=== PATIENT | female | born 1975 | race Caucasian/White ===

== ENCOUNTER 2016-11-12 12:35 | Emergency (ER) | payer BC ==
[2016-11-12 12:45] VITALS: BMI 25.7
--- NOTE | 2016-11-12 13:23 | DR.GENAD ---
HPI - PCP Primary Care Physician: jose gayle - HPI Comment HPI Comment: PATIENT HAD ABRATION BEHIND HER RIGHT ANKLE 4 DAYS AGO. TODAY SHE HAVE LOW GRADE TEMPERATURE. HER HEART IS RACING AND SHE IS NOT FEELING GOOD. SAW PCP WHO STATED HER ON MED FOR CELLULITIS. PATIENT HAVE NO SIGNIFICANT MEDICAL ILLNESS. - Complaint/Symptoms Chief Complaint Doctors Comments: RIGHT ANKLE CELLULITIS TIMES 4 DAYS. FEELING BAD, HEART RACING. Chief Complaint:: patient stated she doesnt feel right and her heart feels like it is running away with her - Nurses notes reviewed Nurses Notes Review: Yes - Source History Provided: Patient - Mode of Arrival Mode of Arrival: Ambulatory - Timing Onset of Chief Complaint: 11/09/16 Came on: Suddenly - Duration Duration: Days - Severity Severity: Moderate PMH - PMH Past Medical History: No Past Surgical History: Yes Surgical History: Cholecystectomy Past Surgical History Comment: breast augmentation - Family History History of Family Medical Conditions: Yes Family Medical History: Coronary Artery Disease, Hypertension - Social History Does patient currently use any type of tobacco product: No Have you used tobacco products in the last 12 months: No Type of Tobacco Use: None Does any household member use tobacco: No Alcohol Use: None Do you use any recreational Drugs:: No Lives With: Family Lives Where: Home - infectious screening In the last 2 months have you had wt loss of >10#?: NO Have you had fever, night sweats or hemotysis?: No Have you traveled outside the country in the last 6 months?: No Isolation: Standard ROS - Review of Systems Constitutional: Weakness, Fatigue. negative: Chills, Fever Eyes: No Symptoms Reported ENTM: No Symptoms Reported Respiratoy: No Symptoms Reported. negative: Productive Cough, Short of Breath, Wheezing, Hemoptysis Cardiovascular: Palpitations Gastrointestinal/Abdominal: Nausea Genitourinary: No Symptoms Reported. negative: Dysuria, Frequency, Hematuria Neurological: Weakness. negative: Headache, Dizziness Musculoskeletal: Muscle Pain Integumentary: No Symptoms Reported Hematologic/Lymphatic: No Symptoms Reported Endocrine: No Symptoms Reported All Other Systems: Reviewed and Negative PE - Vital Signs Vitals: Temperature 97.7 F Pulse Rate [Right Brachial] 100 Pulse Rate 133 Respiratory Rate 16 Blood Pressure [Right Arm] 132/87 Blood Pressure [Left Arm] 133/84 Blood Pressure 159/102 O2 Sat by Pulse Oximetry 99 - General Limitations: No Limitations General Appearance: Alert - Head Head Exam: Normal Inspection - Eyes Eye exam: Normal Appearance - ENT ENT Exam: Normal External Ear Exam External Ear Exam: Normal External Inspection TM/Canal Exam: Bilateral Normal Nose Exam: Normal Nose Exam Mouth Exam: Normal Inspection Throat Exam: Normal Inspection - Neck Neck Exam: Normal Inspection - Chest Chest Inspection: Symmetric Chest Wall Rise - Respiratory Respiratory Exam: Normal Lung Sounds Bilat Respiratory Exam: Bilateral Clear to Auscultation - Cardiovascular Cardiovascular Exam: Normal Rhythm, Tachycardia, Normal Heart Sounds - Abdominal Exam Abdominal Exam: Normal Bowel Sounds, Soft. negative: Tenderness - Extremities Extremities Exam: Tenderness (RLE POSTERIOR ASPECT WITH INFECTED ABRASION.) - Back Back Exam: Normal Inspection - Neurologic Neurological Exam: Alert, Oriented X3 - Psychiatric Psychiatric Exam: Anxious - Skin Skin Exam: Erythema (POST RLE.) MDM - Differential Diagnosis Differential Diagnosis: CELLULITIS, PALPITATION Course - Treatment Treatment: SEE ORDERS. - Reevaluation 1st: Improved (DRESSING APPLIED TO INFECTED RIGHT ANKLE ABRASION IN ED.) - Education/Counseling Education/Counseling: Patient, Education Educated On: Treatment, Diagnosis, Needs for Follow Up ROR - Labs Reviewed Laboratory Results Reviewed?: Yes Result Diagrams: 11/12/16 13:35 11/12/16 13:35 Laboratory: 11/12/16 14:01 Ankle - Right Gram Stain - Final WBC 9.6 X10^3/uL (3.6-10.0) 11/12/16 13:35 RBC 4.94 X10^6/uL (3.5-5.4) 11/12/16 13:35 Hgb 14.7 g/dL (12.0-16.0) 11/12/16 13:35 Hct 41.3 % (36.0-47.0) 11/12/16 13:35 MCV 83.7 fL (80.0-100.0) 11/12/16 13:35 MCH 29.8 pg (27.0-34.0) 11/12/16 13:35 MCHC 35.6 g/dL (33.0-35.0) H 11/12/16 13:35 RDW 12.8 % (11.6-16.5) 11/12/16 13:35 Plt Count 256 X10^3/uL (150.0-450.0) 11/12/16 13:35 MPV 8.8 fL (7.4-11.0) 11/12/16 13:35 Neut % 73.1 % (42.0-75.0) 11/12/16 13:35 Lymph % 20.8 % (21.0-51.0) L 11/12/16 13:35 Lamar % 3.3 % (0.0-13.0) 11/12/16 13:35 Eos % 2.1 % (0.9-2.9) 11/12/16 13:35 Baso % 0.7 % (0.2-1.0) 11/12/16 13:35 Neut # 7.0 x10^3/uL (2.2-4.8) H 11/12/16 13:35 Lymph # 2.0 X10^3/uL (1.3-2.9) 11/12/16 13:35 Lamar # 0.3 x10^3/uL (0.3-0.8) 11/12/16 13:35 Eos # 0.2 x10^3/uL (0.0-0.2) 11/12/16 13:35 Baso # 0.1 X10^3/uL (0.0-0.1) 11/12/16 13:35 Absolute Nucleated RBC 0.0 /100WBC 11/12/16 13:35 Sodium 141 mmol/L (136-145) 11/12/16 13:35 Corrected Sodium 142 mmol/L (136-145) 11/12/16 13:35 Potassium 3.6 mmol/L (3.5-5.1) 11/12/16 13:35 Chloride 104 mmol/L (98-107) 11/12/16 13:35 Carbon Dioxide 25.9 mmol/L (21-32) 11/12/16 13:35 BUN 13 mg/dL (7-18) 11/12/16 13:35 Creatinine 0.91 mg/dL (0.55-1.02) 11/12/16 13:35 Est GFR (MDRD) Af Amer > 60 (>60) 11/12/16 13:35 Est GFR (MDRD) Non-Af > 60 (>60) 11/12/16 13:35 Glucose 123 mg/dL (65-99) H 11/12/16 13:35 Calcium 8.9 mg/dL (8.5-10.1) 11/12/16 13:35 Corrected Calcium TNP 11/12/16 13:35 Total Bilirubin 0.30 mg/dL (0.2-1.0) 11/12/16 13:35 AST 17 Units/L (15-37) 11/12/16 13:35 ALT 23 Units/L (12-78) 11/12/16 13:35 Alkaline Phosphatase 67 Units/L (46-116) 11/12/16 13:35 Creatine Kinase 165 Units/L (26-192) 11/12/16 13:35 CK-MB (CK-2) 2.2 ng/mL (0-4.0) 11/12/16 13:35 CK/CKMB % Calc 1.3 % (<4) 11/12/16 13:35 Troponin I < 0.02 ng/mL (0-1.5) 11/12/16 13:35 B-Natriuretic Peptide 11.9 pg/mL (0-79) 11/12/16 13:35 Total Protein 7.9 g/dL (6.4-8.2) 11/12/16 13:35 Albumin 3.7 g/dL (3.4-5.0) 11/12/16 13:35 Globulin 4.2 g/dL (2.5-4.5) 11/12/16 13:35 Albumin/Globulin Ratio 0.9 Ratio (1.1-2.1) L 11/12/16 13:35 TSH 3rd Generation 0.807 uIU/mL (0.358-3.74) 11/12/16 13:35 Specimen Type Clean catch urine 11/12/16 14:12 Urine Color Yellow (YELLOW) 11/12/16 14:12 Urine Appearance Slightly hazy (CLEAR) 11/12/16 14:12 Urine pH 5.0 (5.0 - 8.0) 11/12/16 14:12 Ur Specific [place] 1.020 (1.000-1.030) 11/12/16 14:12 Urine Protein 1+ (NEGATIVE) 11/12/16 14:12 Urine Glucose (UA) Negative (NEGATIVE) 11/12/16 14:12 Urine Ketones Negative (NEGATIVE) 11/12/16 14:12 Urine Occult Blood 2+ (NEGATIVE) 11/12/16 14:12 Urine Nitrite Negative (NEGATIVE) 11/12/16 14:12 Urine Bilirubin Negative (NEGATIVE) 11/12/16 14:12 Urine Urobilinogen Normal (NORMAL) 11/12/16 14:12 Ur Leukocyte Esterase 1+ (NEGATIVE) 11/12/16 14:12 Urine RBC 7-8 /HPF (NEGATIVE) 11/12/16 14:12 Urine WBC 2-3 /HPF (NEGATIVE) 11/12/16 14:12 Ur Squamous Epith Cells Many /HPF (NEGATIVE) 11/12/16 14:12 Urine Bacteria 1+ /HPF (NEGATIVE) 11/12/16 14:12 Ur Culture Indicated? No/not indicated 11/12/16 14:12 - XRAY XRAY Interpreted by: Radiologist XRAY Findings: REPORT DISCUSS WITH PATIENT. - EKG Rhythm: NSR (EKG NOTED) - Diagnosis Discharge Problem: Cellulitis of right lower extremity, Heart palpitations - Discharge Plan Disposition: 01 HOME, SELF-CARE Condition: Stable Prescriptions: Clindamycin HCl 300 mg PO Q6H #40 cap Hydroxyzine Pamoate [Vistaril] 25 - 50 mg PO TID PRN #50 cap PRN Reason: Ibuprofen [Motrin Tab 800 mg] 800 mg PO Q8H PRN #30 tab PRN Reason: Pain/Inflammation - Follow ups/Referrals Follow ups/Referrals: JOSE GAYLE [Primary Care Provider] - 3 days - Instructions Instructions: Palpitations, [id number], Cellulitis Additional Instructions: RETURN TO ED IF WORSE.
[2016-11-12 13:48] LABS: BASOPHILS # (AUTO) 0.1 X10^3/uL (0.0-0.1); BASOPHILS % (AUTO) 0.7 % (0.2-1.0); EOSINOPHILS # (AUTO) 0.2 x10^3/uL (0.0-0.2); EOSINOPHILS % (AUTO) 2.1 % (0.9-2.9); HEMATOCRIT 41.3 % (36.0-47.0); HEMOGLOBIN 14.7 g/dL (12.0-16.0); LYMPHOCYTES % (AUTO) 20.8 % (21.0-51.0); MEAN CORPUSCULAR HEMOGLOBIN 29.8 pg (27.0-34.0); MEAN CORPUSCULAR HGB CONC 35.6 g/dL (33.0-35.0); MEAN CORPUSCULAR VOLUME 83.7 fL (80.0-100.0); MEAN PLATELET VOLUME 8.8 fL (7.4-11.0); MONOCYTES # (AUTO) 0.3 x10^3/uL (0.3-0.8); MONOCYTES % (AUTO) 3.3 % (0.0-13.0); NEUTROPHILS % (AUTO) 73.1 % (42.0-75.0); PLATELET COUNT 256 X10^3/uL (150.0-450.0); RED BLOOD COUNT 4.94 X10^6/uL (3.5-5.4); RED CELL DISTRIBUTION WIDTH 12.8 % (11.6-16.5); WHITE BLOOD COUNT 9.6 X10^3/uL (3.6-10.0)
--- NOTE | 2016-11-12 13:55 | RAD ---
HISTORY: Chest pain, hypertension Study: Single-view chest Comparison: June 29, 2016 Findings: The trachea is midline. The cardiac silhouette is unremarkable. The lungs are clear without focal mass or consolidation. There is no effusion or pneumothorax. The bony thorax is grossly unremarkab le. IMPRESSION: No acute cardiopulmonary disease. Reported By:
[2016-11-12 14:02] LABS: BLOOD UREA NITROGEN 13 mg/dL (7-18); CALCIUM 8.9 mg/dL (8.5-10.1); CARBON DIOXIDE 25.9 mmol/L (21-32); CHLORIDE 104 mmol/L (98-107); COR NA(FOR HYPERGLY) 142 mmol/L (136-145); CREATININE 0.91 mg/dL (0.55-1.02); GLUCOSE 123 mg/dL (65-99); SODIUM 141 mmol/L (136-145); TROPONIN I < 0.02 ng/mL (0-1.5); eGFR BLACK RACES > 60 (>60); eGFR NON BLACK RACES > 60 (>60)
[2016-11-12 14:04] LABS: B-TYPE NATRIURETIC PEPTIDE 11.9 pg/mL (0-79)
[2016-11-12 14:17] LABS: ALANINE AMINOTRANSFERASE 23 Units/L (12-78); ALBUMIN 3.7 g/dL (3.4-5.0); ALKALINE PHOSPHATASE 67 Units/L (46-116); ASPARTATE AMINO TRANSFERASE 17 Units/L (15-37); CKMB % 1.3 % (<4); CREATINE KINASE 165 Units/L (26-192); CREATINE KINASE MB 2.2 ng/mL (0-4.0); TOTAL PROTEIN 7.9 g/dL (6.4-8.2); TSH (3RD GENERATION) 0.807 uIU/mL (0.358-3.74)
[2016-11-12 14:53] LABS: BILIRUBIN,URINE NEGATIVE (NEGATIVE); BLOOD/HEMOGLOBIN,URINE 2+ (NEGATIVE); GLUCOSE, URINE NEGATIVE (NEGATIVE); KETONES,URINE NEGATIVE (NEGATIVE); LEUKOCYTE ESTERASE ,URINE 1+ (NEGATIVE); NITRITES,URINE NEGATIVE (NEGATIVE); PROTEIN,URINE 1+ (NEGATIVE); UROBILINOGEN,URINE NORMAL (NORMAL)
[2016-11-12 14:55] LABS: APPEARANCE,URINE SLIGHTLY HAZY (CLEAR); BACTERIA,URINE 1+ /HPF (NEGATIVE); COLOR,URINE YELLOW (YELLOW); SQUAMOUS EPITHELIAL CELL,UR MANY /HPF (NEGATIVE)
[2016-11-12] MEDS ORDERED: TORADOL 60 MG VIAL IM ONE (14:56)
[2016-11-12 15:41] VITALS: BP 132/87
[2016-11-12] MEDS ORDERED: TORADOL 60 MG VIAL ONE (15:41)
== END 2016-11-12 15:50 | disposition home or self-care (01) ==
LOC: ER 12:51
DX: L03.115 Cellulitis of right lower limb (principal); R00.2 Palpitations; B95.61 Methicillin susceptible Staphylococcus aureus infection as the cause of diseases classified elsewhere
CPT/HCPCS: 36415; 71010; 80053; 81001; 82550; 82553; 83880; 84443; 84484; 85025; 87070; 87077; 87186; 87205; 93005; 93010; 96372; 99282; 99283; J1885

== ENCOUNTER → 2016-11-14 | Outpatient (CLI) | payer BC ==
[2016-11-12 15:41] VITALS: BP 132/87
== END ==
LOC: LAB 12:15
PROVIDERS: ATTEND Nurse Practitioner Family
DX: R94.6 Abnormal results of thyroid function studies (principal)
CPT/HCPCS: 36415; 84439; 84481

== ENCOUNTER → 2016-12-13 | Outpatient (CLI) | payer BC ==
[2016-12-13 13:38] LABS: BASOPHILS # (AUTO) 0.1 X10^3/uL (0.0-0.1); BASOPHILS % (AUTO) 0.6 % (0.2-1.0); EOSINOPHILS # (AUTO) 0.2 x10^3/uL (0.0-0.2); HEMATOCRIT 40.8 % (36.0-47.0); HEMOGLOBIN 14.3 g/dL (12.0-16.0); LYMPHOCYTES # (AUTO) 1.8 X10^3/uL (1.3-2.9); LYMPHOCYTES % (AUTO) 18.4 % (21.0-51.0); MEAN CORPUSCULAR HEMOGLOBIN 29.1 pg (27.0-34.0); MEAN CORPUSCULAR VOLUME 83.2 fL (80.0-100.0); MEAN PLATELET VOLUME 9.3 fL (7.4-11.0); MONOCYTES # (AUTO) 0.5 x10^3/uL (0.3-0.8); MONOCYTES % (AUTO) 5.4 % (0.0-13.0); NEUTROPHILS # (AUTO) 7.2 x10^3/uL (2.2-4.8); NEUTROPHILS % (AUTO) 73.6 % (42.0-75.0); PLATELET COUNT 227 X10^3/uL (150.0-450.0); RED CELL DISTRIBUTION WIDTH 12.6 % (11.6-16.5); WHITE BLOOD COUNT 9.8 X10^3/uL (3.6-10.0)
[2016-12-13 13:53] LABS: ALANINE AMINOTRANSFERASE 26 Units/L (12-78); ALBUMIN 3.5 g/dL (3.4-5.0); ALKALINE PHOSPHATASE 67 Units/L (46-116); ASPARTATE AMINO TRANSFERASE 21 Units/L (15-37); BLOOD UREA NITROGEN 14 mg/dL (7-18); CARBON DIOXIDE 25.9 mmol/L (21-32); CHLORIDE 107 mmol/L (98-107); CREATININE 0.92 mg/dL (0.55-1.02); GLUCOSE 102 mg/dL (65-99); SODIUM 143 mmol/L (136-145); TOTAL PROTEIN 7.5 g/dL (6.4-8.2); eGFR BLACK RACES > 60 (>60); eGFR NON BLACK RACES > 60 (>60)
[2016-12-13 14:25] LABS: IRON 58 ug/dL (50-175); TOTAL IRON BINDING CAPACITY 357 ug/dL (250-450)
== END ==
LOC: LAB 13:07
PROVIDERS: ATTEND Internal Medicine Gastroenterology
DX: D64.89 Other specified anemias (principal); K92.1 Melena
CPT/HCPCS: 36415; 80053; 82607; 82728; 82746; 83540; 83550; 85025; 86140

== ENCOUNTER 2016-12-20 10:44 | Day surgery (SDC) | payer BC ==
[2016-12-20] MEDS ORDERED: D5 LR 1000 ML 1,000 ML IV ONE (11:13)
[2016-12-20] MEDS ORDERED: DIPRIVAN VIAL 20 ML ONE (11:29)
[2016-12-20] MEDS ORDERED: DIPRIVAN VIAL 10 ML ONE (11:41)
[2016-12-20 16:36] VITALS: BP 119/70
== END 2016-12-20 12:20 | disposition home or self-care (01) ==
LOC: SURG1 10:44
PROVIDERS: ATTEND Internal Medicine Gastroenterology
PROC: 0DJD8ZZ Inspection of Lower Intestinal Tract, Via Natural or Artificial Opening Endoscopic (ICD-10-PCS; principal; 2016-12-20 13:45)
DX: K92.1 Melena (principal); R19.4 Change in bowel habit; R10.84 Generalized abdominal pain; K52.89 Other specified noninfective gastroenteritis and colitis; K64.0 First degree hemorrhoids
CPT/HCPCS: A4217; J3490; J7120

== ENCOUNTER → 2017-05-28 | Outpatient (CLI) | payer BC ==
--- NOTE | 2017-05-29 16:14 | RAD ---
HISTORY: Back Pain Study: 4 views of the lumbar spine Comparison: None. Findings: Grade 2 anterolisthesis of L5 on S1 likely secondary to pars defects bilaterally at the level. Sever e disc height loss at L5-S1. Vertebral body heights are normal. Sacroiliac joints are unremarkable. No evidence for acute fracture can be identified. IMPRESSION: 1. Grade 2 anterolisthesis of L5 on S1 likely secondary to bilateral L5 pars defects. Reported By:
== END | disposition home or self-care (01) ==
LOC: RAD 15:26
PROVIDERS: ATTEND Nurse Practitioner Family
DX: M54.5 Low back pain (principal); M43.16 Spondylolisthesis, lumbar region
CPT/HCPCS: 72110

== ENCOUNTER 2017-06-06 07:35 | Day surgery (SDC) | payer BC ==
[2017-06-06] MEDS ORDERED: D5 LR 1000 ML 1,000 ML IV ONE (07:40)
[2017-06-06] MEDS ORDERED: DIPRIVAN VIAL 20 ML ONE (09:17)
[2017-06-06] MEDS ORDERED: DIPRIVAN VIAL 10 ML ONE (09:33)
[2017-06-06 10:11] VITALS: BP 138/86
== END 2017-06-06 10:00 | disposition home or self-care (01) ==
LOC: SURG1 07:35
PROVIDERS: ATTEND Internal Medicine Gastroenterology
PROC: 0DB88ZX Excision of Small Intestine, Via Natural or Artificial Opening Endoscopic, Diagnostic (ICD-10-PCS; principal; 2017-06-06 07:00)
PROC: 0DJ08ZZ Inspection of Upper Intestinal Tract, Via Natural or Artificial Opening Endoscopic (ICD-10-PCS; principal; 2017-06-06 07:00)
PROC: 0D757ZZ Dilation of Esophagus, Via Natural or Artificial Opening (ICD-10-PCS; principal; 2017-06-06 07:00)
PROC: 0DB68ZX Excision of Stomach, Via Natural or Artificial Opening Endoscopic, Diagnostic (ICD-10-PCS; principal; 2017-06-06 07:00)
DX: R10.13 Epigastric pain (principal); R13.19 Other dysphagia; K21.9 Gastro-esophageal reflux disease without esophagitis; K29.60 Other gastritis without bleeding; K20.8 Other esophagitis
CPT/HCPCS: J3490; J7120

== ENCOUNTER → 2017-09-05 | Outpatient (CLI) | payer BC ==
--- NOTE | 2017-09-05 14:19 | MRI ---
MRI OF THE LUMBAR SPINE WITHOUT IV CONTRAST CLINICAL INDICATION: Low back pain TECHNIQUE: Pre-contrast sagittal T1-, T2-, and T2-w fat-saturated images, and axial T1- and T2-w imag es of the lumbar spine. COMPARISON: None. FINDINGS: For purposes of this dictation, it is assumed that there are 5 [id number], lumbar-type vertebrae , and the most caudal fully segmented lumbar vertebra is labeled L5. There is a grade 2 anterolisthesis of L5 on S1 secondary to bilateral L5 pars defects. Vertebral bodi es are normal in height. There is a normal marrow signal pattern. Significant disc height loss at the L5-S1 level with endplate edema. The conus medullaris terminates at a normal level and the nerve clare ts of the cauda equina appear normal. The included paraspinal soft tissues and retroperitoneal struct ures are grossly normal. Evaluation of the individual levels demonstrates: L1-2: Normal L2-3: Normal L3-4: Normal L4-5: Mild disc bulge without central stenosis. L5-S1: Grade 1 anterolisthesis and endplate changes resulting in mild central stenosis but severe qi ateral neural foraminal stenosis. IMPRESSION: 1. Bilateral L5 pars defects resulting in grade 2 anterolisthesis of L5 on S1 and severe bilateral ne ural foraminal stenosis. Reported By:
== END | disposition home or self-care (01) ==
LOC: RAD 13:07
PROVIDERS: ATTEND Internal Medicine
DX: M51.26 Other intervertebral disc displacement, lumbar region (principal); M48.07 Spinal stenosis, lumbosacral region
CPT/HCPCS: 72148

== ENCOUNTER → 2017-09-27 | Outpatient (CLI) | payer BC ==
[2017-09-27 13:27] LABS: BASOPHILS # (AUTO) 0.1 X10^3/uL (0.0-0.1); BASOPHILS % (AUTO) 0.7 % (0.2-1.0); EOSINOPHILS # (AUTO) 0.1 x10^3/uL (0.0-0.2); EOSINOPHILS % (AUTO) 1.8 % (0.9-2.9); HEMATOCRIT 39.2 % (36.0-47.0); LYMPHOCYTES # (AUTO) 2.1 X10^3/uL (1.3-2.9); LYMPHOCYTES % (AUTO) 26.5 % (21.0-51.0); MEAN CORPUSCULAR HEMOGLOBIN 29.3 pg (27.0-34.0); MEAN CORPUSCULAR HGB CONC 35.7 g/dL (33.0-35.0); MEAN PLATELET VOLUME 9.4 fL (7.4-11.0); MONOCYTES # (AUTO) 0.4 x10^3/uL (0.3-0.8); MONOCYTES % (AUTO) 4.9 % (0.0-13.0); NEUTROPHILS # (AUTO) 5.2 x10^3/uL (2.2-4.8); NEUTROPHILS % (AUTO) 66.1 % (42.0-75.0); PLATELET COUNT 225 X10^3/uL (150.0-450.0); RED BLOOD COUNT 4.78 X10^6/uL (3.5-5.4); RED CELL DISTRIBUTION WIDTH 12.3 % (11.6-16.5); WHITE BLOOD COUNT 7.9 X10^3/uL (3.6-10.0)
== END ==
LOC: LAB 11:48
PROVIDERS: ATTEND Internal Medicine Gastroenterology
DX: K62.5 Hemorrhage of anus and rectum (principal)
CPT/HCPCS: 36415; 85025

== ENCOUNTER → 2017-11-07 | Outpatient (CLI) | payer BC ==
--- NOTE | 2017-11-07 17:16 | MG ---
HISTORY: SCREENING Comparison: None FINDINGS: Bilateral CC and MLO projections of the right and left breast were obtained utilizing full field and pushback technique with bilateral subpectoral saline implants appearing grossly intact. Scattered fi broglandular tissue is seen to be present. No suspicious architectural distortion, mass or clustered microcalcifications can be observed to suggest malignancy. No skin thickening or nipple retraction is appreciated. No pathological lymphadenopathy can be identified. Benign-appearing calcifications are noted within the right and left breast. IMPRESSION: NO RADIOGRAPHIC EVIDENCE OF MALIGNANCY. ACR CATEGORY 2 - benign findings. FOLLOW-UP EXAM 1 YEAR. Diagnostic CAD was utilized and reviewed. * 0 (ZERO) - ASSESSMENT INCOMPLETE; ADDITIONAL IMAGING IS NEEDED. * 1/1 (ONE) - NEGATIVE. * 2/II (TWO) - BENIGN FINDINGS. * 3/III (THREE) - PROBABLY BENIGN FINDING; SHORT INTERVAL FOLLOW-UP SUGGESTED. * 4/IV (FOUR) - SUSPICIOUS ABNORMALITY; BIOPSY SHOULD BE CONSIDERED. * 5/V - HIGHLY SUSPICIOUS OF MALIGNANCY; BIOPSY SHOULD BE PERFORMED. A NEGATIVE X-RAY REPORT SHOULD NOT DELAY BIOPSY IF A DOMINANT OR CLINICALLY SUSPICIOUS MASS IS PRESENT; 4 TO 8 PERCENT OF CANCERS ARE NOT IDENTIFIED BY X-RAY. A NEGA TIVE REPORT MAY REINFORCE THE CLINICAL IMPRESSION. ADENOSIS AND DENSE BREASTS MAY OBSCURE AN UNDERLY ING NEOPLASM. Reported By:
== END ==
LOC: RAD 10:16
PROVIDERS: ATTEND Specialist
DX: Z12.31 Encounter for screening mammogram for malignant neoplasm of breast (principal)
CPT/HCPCS: 77067

== ENCOUNTER 2020-01-28 16:37 | Observation (INO) ==
[2020-01-28] MEDS ORDERED: PEPCID 20 MG IV PREMIX* 20 MG/50 ML BAG IV ONE ×2 (17:07→17:13)
--- NOTE | 2020-01-28 17:08 | DR.CP ---
HPI Time Seen Time Seen by Provider: 01/28/20 16:56 PCP Primary Care Physician: NADIA COOK HPI Comment HPI Comment: PATIENT IS 44YR OLD FEMALE IN ER WITH RIGHT UPPER CHEST PAIN RADIATING TO LEFT SHOULDER, NECK AND JAW. PAIN WORSE TODAY. PAIN ASSOCIATED WITH WEAKNESS, FATIGUE AND NAUSEA. IN ER BP ELEVATED AND HEART RATE IS SLIGHTLY RAPID. NO FEVER, COUGH OR CONGESTION. PAIN CURRENTLY 4/10 LEFT UPPER CHEST BUT WAS UP TO 8/10. PRESSURE ACHING PAIN. Complaint Chief Complaint Doctor Comments: CHEST PAINTIMES 4 DAYS. Chief Complaint:: PT. C/O INTERMITTENT LEFT SHOULDER AND CHEST PAIN. PAIN RADIATES TO NECK AND LEFT JAW. PT. ALSO C/O INCREASED FATIGUE AND NAUSEA. COVID-19 Coronavirus risk:travel/contact w/high risk person: No Has patient experienced Coronavirus symptoms: No Reviewed Nurses Notes Review: Yes Source History Provided: Patient Mode of Arrival Mode of Arrival: Ambulatory Timing Onset of Chief Complaint: 01/24/20 Came on: Suddenly Duration Duration: Intermittent Duration: Days Location Location of Chest Pain: Left and Chest Chest Pain Radiation Location: Left Jaw, Left Shoulder and Neck Context Onset: At rest Cardiac Risk Factors: None History of: None Prehospital Care: None Quality Quality: Pressure like and Heavy Severity Severity: Moderate Modifying Factors Worsens: Exertion Impoves: Rest Associated Signs and Symptoms Associated Signs and Symptoms: Palpitations and Nausea/Vomiting PMH PMH Past Medical History: Yes Past Medical History: Arthritis Past Surgical History: Yes Surgical History: and Cholecystectomy Family History History of Family Medical Conditions: No Family Medical History: Diabetes Mellitus Social History Does patient currently use any type of tobacco product: No Have you used tobacco products in the last 12 months: No Type of Tobacco Use: None Does any household member use tobacco: No Alcohol Use: None Do you use any recreational Drugs:: No Lives With: Family Lives Where: Home Travel Risk Coronavirus risk:travel/contact w/high risk person: No Has patient experienced Coronavirus symptoms: No Infectious screening In the last 2 months have you had wt loss of >10#?: NO Have you had fever, night sweats or hemotysis?: No Have you traveled outside the country in the last 6 months?: No Isolation: Standard ROS Review of Systems Constitutional: See HPI, Diaphoresis, Weakness and Fatigue Eyes: No Symptoms Reported and See HPI; negative Blurred Vision and Diplopia ENTM: No Symptoms Reported and See HPI; negative Ear Pain, Nose Discharge, Nose Congestion and Throat Pain Respiratoy: No Symptoms Reported and See HPI; negative Moist Cough Cardiovascular: No Symptoms Reported, See HPI, Chest Pain and Palpitations; negative Edema Gastrointestinal/Abdominal: No Symptoms Reported, See HPI and Nausea; negative Abdominal Pain, Diarrhea and Vomiting Genitourinary: No Symptoms Reported and See HPI; negative Dysuria, Frequency and Hematuria Neurological: See HPI and Weakness; negative Headache and Dizziness Musculoskeletal: See HPI and Muscle Pain; negative Back Pain Integumentary: No Symptoms Reported and See HPI; negative Change in Color, Rash and Juandice Hematologic/Lymphatic: No Symptoms Reported and See HPI; negative Easy Bruising and Swollen Glands Endocrine: No Symptoms Reported and See HPI; negative Increased Thirst and Increased Urine Psychiatric: No Symptoms Reported and See HPI All Other Systems: Reviewed and Negative PE Vitals Vitals: Temperature 97.8 F Pulse Rate 97 Respiratory Rate 28 Blood Pressure [Right Arm] 129/76 Blood Pressure 137/74 O2 Sat by Pulse Oximetry 100 General Limitations: No Limitations General Appearance: Alert and In No Apparent Distress Head Head Exam: Normal Inspection, Atraumatic and Normocephalic Eyes Eye exam: Normal Appearance and PERRL; negative Scleral Icterus and Conjunctival Injection ENT ENT Exam: Normal Exam, Normal Oropharynx, Normal External Ear Exam and TM's Normal Bilaterally Chest Chest Inspection: Normal Inspection and Symmetric Chest Wall Rise; negative Tenderness Respiratory Respiratory Exam: Normal Lung Sounds Bilat; negative Accessory Muscle Use, Chest Wall Tenderness and Respiratory Distress Respiratory Exam: Bilateral: Clear to Auscultation Cardiovascular Cardiovascular Exam: Tachycardia; negative Systolic Murmur and Diastolic Murmur Pulse: Normal Edema: Normal Abdominal Exam Abdominal Exam: Normal Bowel Sounds and Soft; negative Tenderness Extremities Extremities Exam: Normal Inspection, Full ROM and Normal Capillary Refill; negative Tenderness, Edema and Calf Tenderness Back Back Exam: Normal Inspection; negative Tenderness, (R) CVA Tenderness, (L) CVA Tenderness, Paraspinal Tenderness and Vertebral Tenderness Neurologic Neurological Exam: Alert, Oriented X3 and CN II-XII Intact; negative Motor Sensory Deficit Psychiatric Psychiatric Exam: Normal Affect and Normal Mood Skin Skin Exam: Warm, Dry, Intact and Normal Color MDM Differential Diagnosis Differential Diagnosis: Angina, Chest Wall Pain, Cholelithasis, CHF, Costochondritis, Myocardial Infarction, Pericarditis, Pleuritis, Pancreatitis, Pneumonia, Pneumothorax and Pulmonary Embolus COURSE Treatment Treatment: SEE ORDERS. POTASSIUM 20MEQ PO IN ER, ASA CHEWABLE 324MG PO, NTG S/L X 1 AND PEPCID 20 MG IVPB IN ER. RESIDUAL ACHING IN LEFT ARM. Reevaluation 1st: Improved (CHEST PAIN RESOLVED WITH ASA AND NTG S/L. ) Consultation Consultation Comments: DISCUSSED PATIENT WITH DR. WARE. HE WILL ADMIT PATIENT. Education/Counseling Education/Counseling: Patient Educated On: Diagnosis and Needs for Follow Up ROR Labs Reviewed Laboratory Results Reviewed?: Yes Result Diagrams: 01/29/20 04:57 01/29/20 04:57 Laboratory: WBC 7.8 X10^3/uL (3.6-10.0) 01/28/20 16:55 RBC 4.85 X10^6/uL (3.5-5.4) 01/28/20 16:55 Hgb 14.3 g/dL (12.0-16.0) 01/28/20 16:55 Hct 41.3 % (36.0-47.0) 01/28/20 16:55 MCV 85.2 fL (80.0-100.0) 01/28/20 16:55 MCH 29.5 pg (27.0-34.0) 01/28/20 16:55 MCHC 34.7 g/dL (33.0-35.0) 01/28/20 16:55 RDW 13.1 % (11.6-16.5) 01/28/20 16:55 Plt Count 246 X10^3/uL (150.0-450.0) 01/28/20 16:55 MPV 8.4 fL (7.4-11.0) 01/28/20 16:55 Neut % (Auto) 69.8 % (42.0-75.0) 01/28/20 16:55 Lymph % (Auto) 23.7 % (21.0-51.0) 01/28/20 16:55 Holt % (Auto) 4.1 % (0.0-13.0) 01/28/20 16:55 Eos % (Auto) 1.8 % (0.9-2.9) 01/28/20 16:55 Baso % (Auto) 0.6 % (0.2-1.0) 01/28/20 16:55 Neut # (Auto) 5.5 x10^3/uL (2.2-4.8) H 01/28/20 16:55 Lymph # (Auto) 1.9 X10^3/uL (1.3-2.9) 01/28/20 16:55 Holt # (Auto) 0.3 x10^3/uL (0.3-0.8) 01/28/20 16:55 Eos # (Auto) 0.1 x10^3/uL (0.0-0.2) 01/28/20 16:55 Baso # (Auto) 0.0 X10^3/uL (0.0-0.1) 01/28/20 16:55 Absolute Nucleated RBC 0.0 /100WBC 01/28/20 16:55 Sodium 136 mmol/L (136-145) 01/28/20 16:55 Corrected Sodium TNP 01/28/20 16:55 Potassium 3.1 mmol/L (3.5-5.1) L 01/28/20 16:55 Chloride 99 mmol/L (98-107) 01/28/20 16:55 Carbon Dioxide 27.1 mmol/L (21-32) 01/28/20 16:55 BUN 13 mg/dL (7-18) 01/28/20 16:55 Creatinine 1.00 mg/dL (0.55-1.02) 01/28/20 16:55 Est GFR (MDRD) Af Amer > 60 (>60) 01/28/20 16:55 Est GFR (MDRD) Non-Af > 60 (>60) 01/28/20 16:55 Glucose 96 mg/dL (65-99) 01/28/20 16:55 Calcium 9.4 mg/dL (8.5-10.1) 01/28/20 16:55 Corrected Calcium TNP 01/28/20 16:55 Magnesium 1.7 mg/dL (1.7-2.9) 01/28/20 16:55 Total Bilirubin 0.30 mg/dL (0.2-1.0) 01/28/20 16:55 AST 21 Units/L (15-37) 01/28/20 16:55 ALT 24 Units/L (12-78) 01/28/20 16:55 Alkaline Phosphatase 75 Units/L (46-116) 01/28/20 16:55 Creatine Kinase 295 Units/L (26-192) H 01/28/20 16:55 CK-MB (CK-2) 2.4 ng/mL (0-4.0) 01/28/20 16:55 CK/CKMB % Calc 0.8 % (<4) 01/28/20 16:55 Troponin I < 0.02 ng/mL (0-1.5) 01/28/20 16:55 Total Protein 8.1 g/dL (6.4-8.2) 01/28/20 16:55 Albumin 4.0 g/dL (3.4-5.0) 01/28/20 16:55 Globulin 4.1 g/dL (2.5-4.5) 01/28/20 16:55 Albumin/Globulin Ratio 1.0 Ratio (1.1-2.1) L 01/28/20 16:55 XRAY XRAY Interpreted by: Radiologist (REPORT NOTED AND DISCSSED WITH PATIENT. ) and Self (NO ACUTE INFILTRATE IN CHEST XRAY.) EKG Rate: 94 [place]els: Normal Rhythm: NSR Block: None Hypertrophy: None ST: Nonsp Opioid Opioid Risk Tool Age (Reid box if 16-45): Yes History of Preadolescent Sexual Abuse: No Total: 1 Total Score Risk Category: Low Risk Copyright: [facility] predicting aberrant behaviors Diagnosis Discharge Problem: Palpitation Chest pain Qualifiers: Chest pain type: precordial pain Qualified Code(s): R07.2 - Precordial pain Instructions Instructions: Exercise Stress Test, Hzlr-[id number]-Dsyb Heartburn, Yvzh-qs-Vhvu Weakness, Lzfq-wx-Ivoa Hypertension, Bfpu-fu-Rsoj Form - Blood Pressure Record Sheet Gastroesophageal Reflux Disease, Adult, Ixpu-pj-Erma Echocardiogram Chest Wall Pain Forms: Excuse From Work or School Precautions for COVID19 Patient Portal Social Distancing
[2020-01-28 17:09] LABS: BASOPHILS % (AUTO) 0.6 % (0.2-1.0); EOSINOPHILS # (AUTO) 0.1 x10^3/uL (0.0-0.2); EOSINOPHILS % (AUTO) 1.8 % (0.9-2.9); HEMATOCRIT 41.3 % (36.0-47.0); HEMOGLOBIN 14.3 g/dL (12.0-16.0); LYMPHOCYTES # (AUTO) 1.9 X10^3/uL (1.3-2.9); LYMPHOCYTES % (AUTO) 23.7 % (21.0-51.0); MEAN CORPUSCULAR HEMOGLOBIN 29.5 pg (27.0-34.0); MEAN CORPUSCULAR HGB CONC 34.7 g/dL (33.0-35.0); MEAN CORPUSCULAR VOLUME 85.2 fL (80.0-100.0); MEAN PLATELET VOLUME 8.4 fL (7.4-11.0); MONOCYTES # (AUTO) 0.3 x10^3/uL (0.3-0.8); MONOCYTES % (AUTO) 4.1 % (0.0-13.0); NEUTROPHILS # (AUTO) 5.5 x10^3/uL (2.2-4.8); NEUTROPHILS % (AUTO) 69.8 % (42.0-75.0); PLATELET COUNT 246 X10^3/uL (150.0-450.0); RED BLOOD COUNT 4.85 X10^6/uL (3.5-5.4); RED CELL DISTRIBUTION WIDTH 13.1 % (11.6-16.5); WHITE BLOOD COUNT 7.8 X10^3/uL (3.6-10.0)
[2020-01-28] MEDS ORDERED: ASPIRIN 81 MG CHEWTAB ONE (17:13)
[2020-01-28] MEDS ORDERED: NITROSTAT ONE (17:23)
[2020-01-28] MEDS: ASPIRIN 81 MG CHEWTAB PO ONE ×2 (17:25→17:28)
[2020-01-28] MEDS ORDERED: NITROSTAT SL PRN (17:27)
[2020-01-28 17:30] LABS: ALANINE AMINOTRANSFERASE 24 Units/L (12-78); ALKALINE PHOSPHATASE 75 Units/L (46-116); ASPARTATE AMINO TRANSFERASE 21 Units/L (15-37); BLOOD UREA NITROGEN 13 mg/dL (7-18); CALCIUM 9.4 mg/dL (8.5-10.1); CARBON DIOXIDE 27.1 mmol/L (21-32); CHLORIDE 99 mmol/L (98-107); CKMB % 0.8 % (<4); CREATINE KINASE 295 Units/L (26-192); CREATINE KINASE MB 2.4 ng/mL (0-4.0); SODIUM 136 mmol/L (136-145); TOTAL PROTEIN 8.1 g/dL (6.4-8.2); TROPONIN I < 0.02 ng/mL (0-1.5); eGFR NON BLACK RACES > 60 (>60)
--- NOTE | 2020-01-28 17:59 | RAD ---
HISTORYChest pain.STUDYCHEST, 1 VIEWCOMPARISONApril 2016.FINDINGSThe trachea is midline. The cardiac silhouette is unremarkable. The lungs are clear of consolidation, focal infiltrate, effusion or pneumothorax. The bony thorax is unremarkable.IMPRESSION1. No evidence of acute cardiopulmonary abnormality.Electronically signed by: KALYANI BHAKTA (Jan 28, 2020 17:58:44)
[2020-01-28] MEDS ORDERED: ZOFRAN INJ 4 MG VIAL IVP PRN (18:59)
[2020-01-28] MEDS ORDERED: ATIVAN TAB 1 MG PO PRN (18:59)
[2020-01-28] MEDS ORDERED: MORPHINE SULFATE INJ 2 MG INJ IVP PRN (18:59)
[2020-01-28] MEDS ORDERED: KLOR-CON PO PRN (20:21)
[2020-01-28] MEDS ORDERED: K-DUR TAB 20 MEQ PO PRN (20:21)
[2020-01-28] MEDS ORDERED: POTASSIUM CHL 40 MEQ/NS 0.45% 500 ML IV PRN (20:21)
[2020-01-28] MEDS ORDERED: K-RIDER 10 MEQ/NS 100 ML 10 MEQ/100 ML BAG IV PRN (20:21)
[2020-01-28] MEDS ORDERED: POTASSIUM CHL 60 MEQ/NS 0.45% 500 ML IV PRN (20:21)
[2020-01-28] MEDS ORDERED: MICRO K EXTEN CAP 10 MEQ PO PRN (20:21)
[2020-01-28] MEDS ORDERED: POTASSIUM CHLORIDE LIQ 20 MEQ UDC PO PRN (20:21)
[2020-01-28 20:25] VITALS: BMI 34.4
[2020-01-28] MEDS ORDERED: KLOR-CON ONE (20:30)
[2020-01-28] MEDS ORDERED: NS 1000 ML 1,000 ML ONE (20:32)
[2020-01-28] MEDS: NS 1000 ML 1,000 ML IV SCH (21:10)
[2020-01-28] MEDS ORDERED: MAALOX or MYLANTA PO PRN (21:38)
[2020-01-28 22:21] LABS: BILIRUBIN,URINE NEGATIVE (NEGATIVE); BLOOD/HEMOGLOBIN,URINE 1+ (NEGATIVE); GLUCOSE, URINE NEGATIVE (NEGATIVE); KETONES,URINE NEGATIVE (NEGATIVE); LEUKOCYTE ESTERASE ,URINE NEGATIVE (NEGATIVE); NITRITES,URINE NEGATIVE (NEGATIVE); PH,URINE 6.5 (5.0 - 8.0); PROTEIN,URINE NEGATIVE (NEGATIVE); UROBILINOGEN,URINE NORMAL (NORMAL)
[2020-01-28 22:26] LABS: APPEARANCE,URINE CLEAR (CLEAR); COLOR,URINE PALE YELLOW (YELLOW)
[2020-01-28 22:27] LABS: BACTERIA,URINE NEGATIVE /HPF (NEGATIVE); SQUAMOUS EPITHELIAL CELL,UR RARE /HPF (NEGATIVE)
[2020-01-28 23:14] LABS: CKMB % 0.7 % (<4); CREATINE KINASE 217 Units/L (26-192); CREATINE KINASE MB 1.6 ng/mL (0-4.0); TROPONIN I < 0.02 ng/mL (0-1.5)
[2020-01-29] MEDS ORDERED: MAGNESIUM SULFATE 1 GRAM/100 mL PREMIX 2 G/200 ML BAG IV ONE (00:36)
[2020-01-29] MEDS: MAGNESIUM SULFATE 1 GRAM/100 mL PREMIX 1 GM/100 ML BAG IV PRN ×2 (01:01→02:00)
[2020-01-29] MEDS: NS 1000 ML 1,000 ML IV SCH ×2 (06:32→11:12)
[2020-01-29 06:38] LABS: BASOPHILS % (AUTO) 0.5 % (0.2-1.0); EOSINOPHILS # (AUTO) 0.2 x10^3/uL (0.0-0.2); EOSINOPHILS % (AUTO) 2.5 % (0.9-2.9); HEMOGLOBIN 13.1 g/dL (12.0-16.0); LYMPHOCYTES # (AUTO) 1.9 X10^3/uL (1.3-2.9); LYMPHOCYTES % (AUTO) 30.9 % (21.0-51.0); MEAN CORPUSCULAR HGB CONC 35.4 g/dL (33.0-35.0); MEAN CORPUSCULAR VOLUME 84.8 fL (80.0-100.0); MONOCYTES # (AUTO) 0.3 x10^3/uL (0.3-0.8); MONOCYTES % (AUTO) 5.3 % (0.0-13.0); NEUTROPHILS # (AUTO) 3.7 x10^3/uL (2.2-4.8); NEUTROPHILS % (AUTO) 60.8 % (42.0-75.0); PLATELET COUNT 235 X10^3/uL (150.0-450.0); RED BLOOD COUNT 4.36 X10^6/uL (3.5-5.4); RED CELL DISTRIBUTION WIDTH 13.1 % (11.6-16.5); WHITE BLOOD COUNT 6.1 X10^3/uL (3.6-10.0)
[2020-01-29 07:08] LABS: ALANINE AMINOTRANSFERASE 23 Units/L (12-78); ALBUMIN 3.1 g/dL (3.4-5.0); ALKALINE PHOSPHATASE 57 Units/L (46-116); ASPARTATE AMINO TRANSFERASE 18 Units/L (15-37); BLOOD UREA NITROGEN 8 mg/dL (7-18); CALCIUM 8.6 mg/dL (8.5-10.1); CARBON DIOXIDE 26.8 mmol/L (21-32); CHLORIDE 103 mmol/L (98-107); CHOL/HDL RATIO 4.3 (0.0-5.0); CHOLESTEROL 168 mg/dL (0-200); CKMB % 0.9 % (<4); COR CA(FOR HYPOALB) 9.3 mg/dL (8.5-10.1); CREATINE KINASE 178 Units/L (26-192); CREATINE KINASE MB 1.6 ng/mL (0-4.0); CREATININE 0.78 mg/dL (0.55-1.02); HDL CHOLESTEROL 39 mg/dL (40-60); MAGNESIUM 2.4 mg/dL (1.7-2.9); SODIUM 137 mmol/L (136-145); TOTAL PROTEIN 6.6 g/dL (6.4-8.2); TRIGLYCERIDES 140 mg/dL (0-150); TROPONIN I < 0.02 ng/mL (0-1.5); eGFR NON BLACK RACES > 60 (>60)
[2020-01-29] MEDS ORDERED: ASPIRIN PO SCH (09:00)
[2020-01-29] MEDS ORDERED: NORCO 5/325 MG TAB PO ONE (09:58)
[2020-01-29] MEDS ORDERED: MORPHINE SULFATE INJ 4 MG IVP PRN (10:00)
[2020-01-29] MEDS ORDERED: NORCO 5/325 MG TAB ONE (10:02)
[2020-01-29] MEDS ORDERED: PROTONIX INJ 40 MG VIAL IVP SCH (12:00)
[2020-01-29] MEDS ORDERED: TORADOL 30 MG VIAL IVP ONE (13:35)
[2020-01-29] MEDS ORDERED: ZANAFLEX PO SCH (14:00)
[2020-01-29 14:04] LABS: FREE T4 (FREE THYROXINE) 1.26 ng/dL (0.76-1.46); TSH (3RD GENERATION) 1.37 uIU/mL (0.358-3.74)
--- NOTE | 2020-01-29 14:46 | DR.H&P ---
H&P - History & Physical for Day of: H&P Date: 01/29/20 - Chief Complaint Chief Complaint: chest pain, left shoulder pain, upper back and neck pain - History of Present Illness History of Present Illness: PT IS 44 WF ER ADMISSION AFTER PRESENTING WITH CO CHEST PAIN, LEFT SHOULDER PAIN AND NECK PAIN. PT REPORTS PAIN IS IN LEFT SIDE OF NECK UP TO HER JAW. PT DENIES ANY FEVER, CCC OR SOB. PT CO FEELING FATIGUED. PT WAS NOTED TO BE HYPOKALEMIC ON ADMISSION LABS. PT DENIES ANY HX OF HTN OR CAD. PT REPORTS HS OF GERD, ANXIETY AND "DEGENERATIVE DISK" IN NECK AND LOWER BACK. - Past Medical History Past Medical History: Arthritis, GERD - Past Surgical History Surgical History: Cholecystectomy, - Family History Family Medical History: Diabetes Mellitus, [place], Coronary Artery Disease - Social History Does patient currently use any type of tobacco product: No Have you used tobacco products in the last 12 months: No Type of Tobacco Use: None Does any household member use tobacco: No Alcohol Use: None Drug Use: None - Medications Home Medications: No Known Drug Allergies Allergy (Verified 01/28/20 16:38) CONTINUE taking the following medications azithromycin 250 mg PO DAILY 01/29/20 [History] cetirizine 10 mg PO DAILY 01/29/20 [History] duloxetine 30 mg PO DAILY 01/29/20 [History] New Prescriptions pantoprazole [Protonix] 40 mg PO DAILY #30 tab 01/29/20 [Rx] potassium chloride 10 meq PO DAILY 60 Days #30 cap 01/29/20 [Rx] tizanidine 4 mg PO BID PRN #30 cap 01/29/20 [Rx] - Review of Systems Constitutional: Malaise Eyes: No Symptoms Reported ENT: No Symptoms Reported Respiratory: denies: Cough, Shortness of Breath Cardiovascular: Chest Pain. denies: Edema Gastrointestinal: No Symptoms Reported Genitourinary: No Symptoms Reported Musculoskeletal: Shoulder Pain, Back Pain, Neck Pain Skin: No Symptoms Reported Neurological: Other (EPISODES OF NUMBNESS THAT COMES AND GOES TO LEFT HAND ARM) - Physical Exam Vital Signs: Temperature 97.6 F Pulse Rate [Radial] 80 Pulse Rate 116 Respiratory Rate 18 Blood Pressure [Right Arm] 148/67 Blood Pressure 137/75 O2 Sat by Pulse Oximetry 96 Oriented: Normal Eyes: Normal Ear: Normal Nose: Normal Throat: Normal Respiratory: Clear Throughout Cardiovascular: Normal : Normal Auscultation: Bowel Sounds: Normal Palpation: Normal Tenderness: Normal Skin: Normal Musculoskeletal: Back:Thoracic, Back:Lumbar, Swelling (PERISPINAL MUSCLE SWELLING), Tender Psychiatric: Anxiety Affect: Anxious Speech Pattern: Clear, Appropriate - Assessment/Plan (1) Chest pain Status: Acute Plan: ADMIT SERIAL CE AND EKG. BP MONITORING, O2 SATURATION MONITORING. CXR ON ADMISSION, VERIFY HOME MEDICATION. PAIN CONTROL. REVIEW XRAY OF C SPINE FROM 2019, MUSCLE RELAXER (2) Anxiety Status: Acute (3) GERD (gastroesophageal reflux disease) Status: Acute (4) Cervical spine degeneration Status: Acute - Allergies Allergies/Adverse Reactions: Allergies Allergy/AdvReac Type Severity Reaction Status Date / Time No Known Drug Allergies Allergy Verified 01/28/20 16:38
[2020-01-29 15:49] VITALS: BP 116/67
--- NOTE | 2020-01-29 17:10 | MRI ---
HISTORYCSPINE DDD, NECK PAIN, LT HAND PARESTHESIASTUDYMR C SPINE W/O CONTRASTCOMPARISONNoneTECHNIQUEMultiplanar multisequence MRI of the cervical [facility].FINDINGSAlignment of the cervical spine is maintained. No abnorm al signal characteristics of the bone marrow can be identified. No evidence for fracture or signific ant bone or edema can be seen. The surrounding soft tissues are unremarkable. No abnormal cord signa l is seen.C2 -- C3: UnremarkableC3 -- C4: Mild disc ridging with no significant stenosis.C4 -- C5: Br oad-based disc bulge with some mild narrowing of the central canal no significant stenosis.C5 -- C6: Broad-based disc bulge with some mild central canal narrowing with no significant stenosisC6 -- C7: B ased disc bulge with mild uncovertebral hypertrophy with some mild central canal narrowing but no sig nificant central foraminal narrowing.C7 -- T1: UnremarkableIMPRESSIONMild degenerative changes as abo ve with no significant stenosis identified.Electronically signed by: MIRNA LEBRON (Jan 29, 2020 1 7:08:54)
== END 2020-01-29 17:30 | disposition home or self-care (01) ==
LOC: MED/SURG 16:37 → ER 16:37 → MED/SURG 19:30
PROVIDERS: ADMIT Internal Medicine; ATTEND Internal Medicine
DX: F41.8 Other specified anxiety disorders; M25.512 Pain in left shoulder; K21.9 Gastro-esophageal reflux disease without esophagitis; M50.10 Cervical disc disorder with radiculopathy, unspecified cervical region; M79.602 Pain in left arm; M54.5 Low back pain; R07.2 Precordial pain
CPT/HCPCS: 36415; 71010; 71045; 72141; 80053; 80061; 81001; 82550; 82553; 83735; 84132; 84439; 84443; 84484; 85025; 85378; 93005; 94760; 96360; 96361; 96365; 96374; 99284; A4222; C9113; G0378; J1885; J3475; J7030; S0028